=== PATIENT | female | born 1960 | race Caucasian/White ===

== ENCOUNTER 2017-11-24 06:24 | Emergency (ER) | END 2017-11-24 11:11 | disposition short-term general hospital (02) ==

== ENCOUNTER 2017-12-07 12:27 | Inpatient (IN) | END 2017-12-13 20:35 | disposition home or self-care (01) | DRG 440 ==

== ENCOUNTER 2018-01-17 18:00 | Inpatient (IN) | END 2018-01-21 16:00 | disposition home or self-care (01) | DRG 828 ==

== ENCOUNTER 2018-09-24 08:12 | Emergency (ER) | payer OTHER ==
[~2018-09-24] VITALS: Ht 149.9 cm; Wt 80.0 kg
[~2018-09-24 08:12] MED LIST: ASPI-903 PO; CALC500T11 PO; CITA20TA8 PO; DOCU-216 PO; HYDR2TAB36 PO; LEVO150T7 PO; LOSA25TA12 PO; MAGN400T28 PO; SIMV20TA PO
[2018-09-24 08:14] VITALS: Ht 149.9 cm; Wt 80.0 kg
[2018-09-24] MEDS ORDERED: KETOROLAC 30 MG INJ IV STA (08:32)
[2018-09-24] MEDS ORDERED: IBUP-1542 PO (09:44)
--- NOTE | 2018-09-24 09:45 | ERD ---
ER Documentation Chief Complaint Chief Complaint pressure chest pain radiating to R shoulder,L eye swelling HPI Patient is a 57-year-old female with cancer and hypertension who presents with headache. The patient has left eye swelling as well. She was under stress recently when the symptoms started. She has a history of similar in the past. She had chest pressure as well. She tried cool compresses. She does not receive chemotherapy or radiation at this time. Upon review of old medical records this is the patient's sixth visit to the ER since 2017 but review of the emergency department information exchange system shows visits to 3 separate emergency departments. Her primary doctor is Dr. Mukesh Brown. ROS All systems reviewed and are negative except as per history of present illness. Medications Home Meds Active Scripts Ibuprofen* (Motrin*) 600 Mg Tab, 600 MG PO Q6H PRN for PAIN AND OR ELEVATED TEMP, #30 TAB Prov:CORINNE LOPEZ MD 09/24/18 Docusate Sodium (Dok) 100 Mg Capsule, 100 MG PO BID, #60 CAP Prov:ARIELA GRANT 01/21/18 Hydromorphone Hcl* (Dilaudid*) 2 Mg Tablet, 2 MG PO Q6H PRN for PAIN, #60 TAB Prov:ARIELA GRANT 01/21/18 Reported Medications Citalopram Hydrobromide* (Citalopram Hydrobromide*) 20 Mg Tablet, 20 MG PO DAILY, #30 TAB 11/24/17 Magnesium Oxide* (Magnesium Oxide*) 400 Mg Tablet, 400 MG PO DAILY, TAB 11/24/17 Calcium Carbonate (Oysco-500) 500 Mg Tablet, 500 MG PO DAILY, TAB 11/24/17 Simvastatin* (Zocor*) 20 Mg Tablet, 20 MG PO QHS, #30 TAB 11/24/17 Levothyroxine Sodium* (Levothyroxine Sodium*) 150 Mcg Tablet, 150 MCG PO BEFORE BREAKFAST, #30 TAB 11/24/17 Aspirin* (Aspirin* Chew) 81 Mg Tab.chew, 81 MG PO DAILY, TAB.CHEW 11/24/17 Losartan Potassium* (Losartan Potassium*) 25 Mg Tablet, 25 MG PO DAILY, TAB 11/24/17 Allergies Allergies: Coded Allergies: No Known Allergy (Unverified , 01/17/18) PMhx/Soc History of Surgery: Yes (THYROIDECTOMY,RIGHT EAR,LEFT BREAST CYST,CHOLECYSTECTOMY,RT ARTHROSCOPY,BUN) Anesthesia Reaction: No Hx Neurological Disorder: No Hx Respiratory Disorders: No Hx Cardiac Disorders: Yes (HTN) Hx Psychiatric Problems: No Hx Miscellaneous Medical Probl: Yes (THYROID CA) Hx Alcohol Use: No Hx Substance Use: No Hx Tobacco Use: No Smoking Status: Never smoker FmHx Family History: diabetes Physical Exam Vitals Vital Signs Date Temp Pulse Resp B/P (MAP) Pulse Ox O2 O2 Flow FiO2 Time Delivery Rate 09/24/18 98.0 69 14 130/96 100 Room Air 10:25 (107) 09/24/18 89 18 147/97 98 Room Air 08:25 (114) 09/24/18 98.5 82 18 164/7 (59) 98 08:14 Physical Exam Const: Moderate distress Head: Atraumatic Eyes: Normal Conjunctiva ENT: Normal External Ears, Nose and Mouth. Neck: Full range of motion. No meningismus. Resp: Clear to auscultation bilaterally Cardio: Regular rate and rhythm, no murmurs Abd: Soft, non tender, non distended. Normal bowel sounds Skin: No petechiae or rashes Back: No midline or flank tenderness Ext: No cyanosis, or edema Neur: Awake and alert cranial nerves II through XII intact, strength is 5 out of 5 in all 4 extremities Psych: Normal Mood and Affect Result Diagram: 09/24/18 0842 09/24/18 0842 Results 24 hrs Laboratory Tests Test 09/24/18 08:42 White Blood Count 3.6 10^3/ul Red Blood Count 4.98 10^6/ul Hemoglobin 14.4 g/dl Hematocrit 43.4 % Mean Corpuscular Volume 87.1 fl Mean Corpuscular Hemoglobin 28.9 pg Mean Corpuscular Hemoglobin Concent 33.2 g/dl Red Cell Distribution Width 12.6 % Platelet Count 281 10^3/UL Mean Platelet Volume 9.5 fl Immature Granulocytes % 0.300 % Neutrophils % 49.0 % Lymphocytes % 37.0 % Monocytes % 10.3 % Eosinophils % 2.8 % Basophils % 0.6 % Nucleated Red Blood Cells % 0.0 /100WBC Immature Granulocytes # 0.010 10^3/ul Neutrophils # 1.8 10^3/ul Lymphocytes # 1.3 10^3/ul Monocytes # 0.4 10^3/ul Eosinophils # 0.1 10^3/ul Basophils # 0.0 10^3/ul Nucleated Red Blood Cells # 0.0 10^3/ul Sodium Level 141 mmol/L Potassium Level 3.9 mmol/L Chloride Level 112 mmol/L Carbon Dioxide Level 23 mmol/L Anion Gap 6 Blood Urea Nitrogen 20 mg/dl Creatinine 0.53 mg/dl Est Glomerular Filtrat Rate mL/min > 60 mL/min Glucose Level 104 mg/dl Calcium Level 9.3 mg/dl Troponin I < 0.012 ng/ml Current Medications Medications Dose Sig/Trav Start Time Status Last (Trade) Ordered Route PRN Stop Time Admin Dose Reason Admin Ketorolac 30 mg ONCE STAT 09/24/18 DC 09/24/18 Tromethamine IV 08:32 08:46 (Toradol) 09/24/18 08:34 Procedures/MDM EKG read by me: Rate/Rhythm: Regular rate and rhythm at a rate of 76 Intervals: Normal Impression: No evidence of ischemia or arrhythmia CT brain read by radiology. Patient is a 57-year-old female who presents with multiple complaints. The patient has headache and chest pain. Laboratory studies were normal. CT scan of the brain shows no acute abnormality. At this point I doubt acute coronary syndrome, pneumonia, pneumothorax, pulmonary embolism, or aortic dissection. The patient has frequent visits to multiple emergency departments. The patient will be discharged but will need to follow-up closely with the primary doctor within 24-48 hours. She can return for any worsening symptoms. Departure Diagnosis: Primary Impression: Headache Headache type: unspecified Headache chronicity pattern: acute headache Intractability: not intractable Qualified Codes: R51 - Headache Additional Impression: Chest pain Chest pain type: unspecified Qualified Codes: R07.9 - Chest pain, unspecified Condition: Fair Patient Instructions: Self-Care for Headaches, Chest Pain, Uncertain Cause Additional Instructions: Llame al doctor MAANA y janeen alex LESLIE PARA DENTRO DE 1-2 BENNETT.Dgale a la secretaria que nosotros le instruimos hacer esta leslie.Avise o llame si moreira condicin se empeora antes de la leslie. Regresa aqui si peor o no mejor. CORINNE LOPEZ MD Sep 24, 2018 09:45
[2018-09-24 10:25] VITALS: BP 130/96; PULSE 69; RESP 14
== END 2018-09-24 10:25 | disposition home or self-care (01) ==
LOC: E/R 08:12
DX: R51 Headache (principal); I10 Essential (primary) hypertension; Z85.850 Personal history of malignant neoplasm of thyroid; Z79.82 Long term (current) use of aspirin
CPT/HCPCS: 36415; 70450; 71045; 80048; 84484; 85025; 93005; 96374; J1885; Z7502; Z7610

== ENCOUNTER 2018-10-07 14:11 | Emergency (ER) | payer OTHER ==
[~2018-10-07] VITALS: Wt 80.6 kg
[~2018-10-07 14:11] MED LIST changes: +IBUP-1542 PO
[2018-10-07] MEDS ORDERED: HYDROmorphONE 1 MG/ML SYG IV STA (15:21)
[2018-10-07] MEDS ORDERED: LIDOCAINE/MYLANTA 40 ML BTL PO STA (15:21)
[2018-10-07] MEDS ORDERED: BELLADONNA/PHENOBARBITAL TAB PO STA (15:21)
[2018-10-07] MEDS ORDERED: PROCHLORPERAZINE 10 MG INJ IV STA (15:21)
[2018-10-07] MEDS ORDERED: DIPHENHYDRAMINE 50 MG INJ IV STA (15:21)
--- NOTE | 2018-10-07 16:01 | ERD ---
ER Documentation Chief Complaint Chief Complaint AP,CP, VOMITING HPI This is a 57-year-old female who has complaints of a typical migraine headache. The patient has a multi-year long-standing history of migraines. She says she is having a typical exacerbation over the past day with pain located at the frontal region that is pounding with phonophobia and worse with positional change. She does get nausea vomiting with her migraines and she said she is vomiting at this 1. No blood in her vomit. She says after vomiting a few times she developed some epigastric pain this burning. Denies chest pain or shortness of breath or jaw or elbow pain. Patient has a history of hypertension she has had a cholecystectomy ROS All systems reviewed and are negative except as per history of present illness. Medications Home Meds Active Scripts Lorazepam* (Lorazepam*) 1 Mg Tablet, 1 MG PO Q8H PRN for INSOMNIA, #10 TAB Prov:JAYME KAY DO 10/07/18 Ondansetron (Ondansetron Odt) 4 Mg Tab.rapdis, 4 MG PO Q6H PRN for NAUSEA AND/OR VOMITING, #10 TAB Prov:JAYME KAY DO 10/07/18 Hydrocodone/Acetaminophen ([place] 10-325 Tablet) 1 Each Tablet, 1 TAB PO Q6H PRN for PAIN, #16 TAB Prov:JAYME KAY DO 10/07/18 Reported Medications Linaclotide (LINZESS) 290 Mcg Capsule, 290 MCG PO DAILY, #30 CAP 10/07/18 Losartan Potassium* (Losartan Potassium*) 50 Mg Tablet, 50 MG PO DAILY, TAB 10/07/18 Pantoprazole* (Protonix*) 40 Mg Tablet.dr, 40 MG PO DAILY, TAB 10/07/18 Levothyroxine Sodium* (Levoxyl*) 200 Mcg Tablet, 200 MCG PO BEFORE BREAKFAST, #30 TAB 10/07/18 Citalopram Hydrobromide* (Citalopram Hydrobromide*) 20 Mg Tablet, 20 MG PO DAILY, #30 TAB 11/24/17 Simvastatin* (Zocor*) 20 Mg Tablet, 20 MG PO QHS, #30 TAB 11/24/17 Discontinued Reported Medications Magnesium Oxide* (Magnesium Oxide*) 400 Mg Tablet, 400 MG PO DAILY, TAB 11/24/17 Calcium Carbonate (Oysco-500) 500 Mg Tablet, 500 MG PO DAILY, TAB 11/24/17 Levothyroxine Sodium* (Levothyroxine Sodium*) 150 Mcg Tablet, 150 MCG PO BEFORE BREAKFAST, #30 TAB 11/24/17 Aspirin* (Aspirin* Chew) 81 Mg Tab.chew, 81 MG PO DAILY, TAB.CHEW 11/24/17 Losartan Potassium* (Losartan Potassium*) 25 Mg Tablet, 25 MG PO DAILY, TAB 11/24/17 Discontinued Scripts Ibuprofen* (Motrin*) 600 Mg Tab, 600 MG PO Q6H PRN for PAIN AND OR ELEVATED TEMP, #30 TAB Prov:CORINNE LOPEZ MD 09/24/18 Docusate Sodium (Dok) 100 Mg Capsule, 100 MG PO BID, #60 CAP Prov:ARIELA GRANT 01/21/18 Hydromorphone Hcl* (Dilaudid*) 2 Mg Tablet, 2 MG PO Q6H PRN for PAIN, #60 TAB Prov:ARIELA GRANT 01/21/18 Allergies Allergies: Coded Allergies: No Known Allergy (Unverified , 10/07/18) PMhx/Soc History of Surgery: Yes (THYROIDECTOMY,RIGHT EAR,LEFT BREAST CYST,CHOLECYSTECTOMY,RT ARTHROSCOPY,BUN) Anesthesia Reaction: No Hx Neurological Disorder: No Hx Respiratory Disorders: No Hx Cardiac Disorders: Yes (HTN) Hx Psychiatric Problems: No Hx Miscellaneous Medical Probl: Yes (THYROID CA) Hx Alcohol Use: No Hx Substance Use: No Hx Tobacco Use: No Smoking Status: Never smoker FmHx Family History: No coronary disease Physical Exam Vitals Vital Signs Date Temp Pulse Resp B/P (MAP) Pulse Ox O2 O2 Flow FiO2 Time Delivery Rate 10/07/18 98.7 86 18 164/106 99 14:20 (125) Physical Exam Const: Well-developed, well-nourished Head: Atraumatic, normocephalic Eyes: Normal Conjunctiva, PERRLA, EOMI, normal sclera, no nystagmus ENT: Normal External Ears, Nose and Mouth, moist mucus membranes. Neck: Full range of motion. No meningismus, no lymphadenopathy. Resp: Clear to auscultation bilaterally, no wheezing, rhonchi, rales Cardio: Regular rate and rhythm, no murmurs, S1 S2 present Abd: Soft, mild to moderate epigastric tenderness,, non distended. Normal bowel sounds, no guarding or rebound, no pulsitile abdominal masses or bruits Skin: No petechiae or rashes, no ecchymosis , no maculopapular rash Back: No midline or flank tenderness Ext: No cyanosis, or edema, FROM x 4, normal inspection, neurovascularly intact x 4 Neur: Awake and alert, STR 5/5 x 4, sensation intact x 4, no focal findings, cerebellum intact Psych: Normal Mood and Affect Result Diagram: 10/07/18 1528 10/07/18 1528 Results 24 hrs Laboratory Tests Test 10/07/18 15:28 White Blood Count 4.7 10^3/ul Red Blood Count 5.16 10^6/ul Hemoglobin 14.7 g/dl Hematocrit 44.9 % Mean Corpuscular Volume 87.0 fl Mean Corpuscular Hemoglobin 28.5 pg Mean Corpuscular Hemoglobin Concent 32.7 g/dl Red Cell Distribution Width 12.5 % Platelet Count 305 10^3/UL Mean Platelet Volume 9.8 fl Immature Granulocytes % 0.000 % Neutrophils % 54.8 % Lymphocytes % 29.8 % Monocytes % 11.3 % Eosinophils % 3.0 % Basophils % 1.1 % Nucleated Red Blood Cells % 0.0 /100WBC Immature Granulocytes # 0.000 10^3/ul Neutrophils # 2.6 10^3/ul Lymphocytes # 1.4 10^3/ul Monocytes # 0.5 10^3/ul Eosinophils # 0.1 10^3/ul Basophils # 0.1 10^3/ul Nucleated Red Blood Cells # 0.0 10^3/ul Sodium Level 140 mmol/L Potassium Level 4.8 mmol/L Chloride Level 104 mmol/L Carbon Dioxide Level 32 mmol/L Anion Gap 4 Blood Urea Nitrogen 25 mg/dl Creatinine 0.76 mg/dl Est Glomerular Filtrat Rate mL/min > 60 mL/min Glucose Level 96 mg/dl Calcium Level 9.4 mg/dl Troponin I < 0.012 ng/ml Current Medications Medications Dose Sig/Trav Start Time Status Last (Trade) Ordered Route PRN Stop Time Admin Dose Reason Admin 10 mg ONCE STAT 10/07/18 DC 10/07/18 Prochlorperaz IV 15:21 10/07/18 15:42 ine 15:23 (Compazine Inj) 1 mg ONCE STAT 10/07/18 DC 10/07/18 Hydromorphone IV 15:21 10/07/18 15:42 HCl 15:23 (Dilaudid) 25 mg ONCE STAT 10/07/18 DC 10/07/18 Diphenhydrami IV 15:21 10/07/18 15:42 ne HCl 15:23 (Benadryl) 40 ml ONCE STAT 10/07/18 DC 10/07/18 Miscellaneous PO 15:21 10/07/18 15:41 Medication 15:23 (Gi Cocktail (2)) Belladonna/ 2 tab ONCE STAT 10/07/18 DC 10/07/18 Phenobarbital PO 15:21 10/07/18 15:41 () 15:23 Procedures/MDM Patient: KAYLYNN WEBSTER : 1960 Age: 57 Sex: F MR #: [id number] DOS: 10/07/18 1521 Ordering MD: JAYME KAY DO Location: E/R Room/Bed: PROCEDURE: CT Brain without contrast. CLINICAL INDICATION: Headache, altered mental status TECHNIQUE: A CT of the brain was performed on a multi-slice CT scanner utilizing axial imaging from the skull base through the vertex without IV contrast. Multiplanar reformatted images were made. Images were reviewed on a PACS workstation. The CTDIvol is 39.6 mGy and the DLP is 634.2 mGycm. One or more of the following dose reduction techniques were used: Automated exposure control. Adjustment of the mA and/or kV according to patient's size. Use of iterative reconstruction technique. DICOM images are available. COMPARISON: 09/24/2018 FINDINGS: The sulcal gyral pattern is unremarkable without evidence of effacement. The chance-white matter differentiation is intact. No masses, edema or shift is identified. There are no intraparenchymal or extraaxial fluid collections. The visualized paranasal sinuses and mastoid air cells are well-aerated. The skull base and calvarium are intact. IMPRESSION: No acute intracranial abnormalities are identified. RPTAT:AAJJ Spenser Castro, Physician Date Time Electronically viewed and signed by Spenser Castro Physician on 10/07/2018 17:16 MC/ CC: JAYME KAY DO [id number] Patient says her headache is 0 out of 10 and feels much better. The patient says she is been under a lot of stress lately her a few months ago. She has not been sleeping well. I will provide her with some Ativan for sleep/stress response and have her follow-up with her neurologist Departure Diagnosis: Primary Impression: Migraine headache Migraine type: unspecified Status migrainosus presence: without status migrainosus Intractability: not intractable Qualified Codes: G43.909 - Migraine, unspecified, not intractable, without status migrainosus Condition: Stable JAYME KAY DO October 07, 2018 16:01
[2018-10-07] MEDS ORDERED: LEVO200T45 PO (16:25)
[2018-10-07] MEDS ORDERED: PANT40TA3 PO (16:26)
[2018-10-07] MEDS ORDERED: LOSA50TA14 PO (16:26)
[2018-10-07] MEDS ORDERED: LINA290C PO (16:27)
[2018-10-07] MEDS ORDERED: LORA1TAB PO (17:58)
[2018-10-07] MEDS ORDERED: HYDR-3980 PO (17:58)
[2018-10-07] MEDS ORDERED: ONDA4TAB14 PO (17:58)
[2018-10-07 18:19] VITALS: BP 127/89; PULSE 74; RESP 20
== END 2018-10-07 18:20 | disposition home or self-care (01) ==
LOC: E/R 14:11
DX: G43.909 Migraine, unspecified, not intractable, without status migrainosus (principal); I10 Essential (primary) hypertension; Z85.850 Personal history of malignant neoplasm of thyroid
CPT/HCPCS: 36415; 70450; 80048; 84484; 85025; 93005; 96374; 96375; J0780; J1170; J1200; Z7502; Z7610

== ENCOUNTER 2018-10-09 10:01 | Emergency (ER) | payer OTHER ==
[~2018-10-09] VITALS: Ht 152.4 cm; Wt 80.0 kg
[~2018-10-09 10:01] MED LIST changes: -ASPI-903 PO; -CALC500T11 PO; -DOCU-216 PO; +HYDR-3980 PO; -HYDR2TAB36 PO; -IBUP-1542 PO; -LEVO150T7 PO; +LEVO200T45 PO; +LINA290C PO; +LORA1TAB PO; -LOSA25TA12 PO; +LOSA50TA14 PO; -MAGN400T28 PO; +ONDA4TAB14 PO; +PANT40TA3 PO
[2018-10-09 10:06] VITALS: Ht 152.4 cm; Wt 80.0 kg
[2018-10-09] MEDS ORDERED: DIPHENHYDRAMINE 25 MG CAP PO ONE (11:00)
[2018-10-09] MEDS ORDERED: METHYLPREDNISOLONE 125 MG INJ IM ONE (11:00)
[2018-10-09] MEDS ORDERED: FAMOTIDINE 20 MG TAB PO ONE (11:00)
[2018-10-09] MEDS ORDERED: PRED20TA PO (11:25)
[2018-10-09] MEDS ORDERED: BEN25 PO (11:25)
[2018-10-09 11:48] VITALS: BP 149/78; PULSE 79; RESP 18
--- NOTE | 2018-10-10 19:10 | ERD ---
ER Documentation Chief Complaint Chief Complaint RASHES AND ITTCHINESS ; RIGHT ARM TINGLING SENSATION HPI 57-year-old female patient with past medical history of thyroid cancer, hypertension presents ED complaining of a rash that started a few days ago, complains it is itchy. Reports that she is taking aspirin, levothyroxine, citalopram, simvastatin. States that her sister also has similar symptoms. States that she took Benadryl last night. Denies any chest, shortness of breath, nausea, vomiting, diarrhea, neck stiffness. ROS All systems reviewed and are negative except as per history of present illness. Medications Home Meds Active Scripts Prednisone* (Prednisone*) 20 Mg Tab, 40 MG PO DAILY for 4 Days, TAB Prov:EMELYN ROSEN PA-C 10/09/18 Diphenhydramine Hcl* (Benadryl*) 25 Mg Cap, 25 MG PO Q6, #30 CAP Prov:EMELYN ROSEN PA-C 10/09/18 Lorazepam* (Lorazepam*) 1 Mg Tablet, 1 MG PO Q8H PRN for INSOMNIA, #10 TAB Prov:JAYME KAY DO 10/07/18 Ondansetron (Ondansetron Odt) 4 Mg Tab.rapdis, 4 MG PO Q6H PRN for NAUSEA AND/OR VOMITING, #10 TAB Prov:JAYME KAY DO 10/07/18 Hydrocodone/Acetaminophen ([place] 10-325 Tablet) 1 Each Tablet, 1 TAB PO Q6H PRN for PAIN, #16 TAB Prov:JAYME KAY DO 10/07/18 Reported Medications Linaclotide (LINZESS) 290 Mcg Capsule, 290 MCG PO DAILY, #30 CAP 10/07/18 Losartan Potassium* (Losartan Potassium*) 50 Mg Tablet, 50 MG PO DAILY, TAB 10/07/18 Pantoprazole* (Protonix*) 40 Mg Tablet.dr, 40 MG PO DAILY, TAB 10/07/18 Levothyroxine Sodium* (Levoxyl*) 200 Mcg Tablet, 200 MCG PO BEFORE BREAKFAST, #30 TAB 10/07/18 Citalopram Hydrobromide* (Citalopram Hydrobromide*) 20 Mg Tablet, 20 MG PO DAILY, #30 TAB 11/24/17 Simvastatin* (Zocor*) 20 Mg Tablet, 20 MG PO QHS, #30 TAB 11/24/17 Allergies Allergies: Coded Allergies: No Known Allergy (Unverified , 10/07/18) PMhx/Soc History of Surgery: Yes (THYROIDECTOMY,RIGHT EAR,LEFT BREAST CYS T,CHOLECYSTECTOMY,RT ARTHROSCOPY,BUN) Anesthesia Reaction: No Hx Neurological Disorder: No Hx Respiratory Disorders: No Hx Cardiac Disorders: Yes (HTN) Hx Psychiatric Problems: No Hx Miscellaneous Medical Probl: Yes (THYROID CA) Hx Alcohol Use: No Hx Substance Use: No Hx Tobacco Use: No Smoking Status: Never smoker FmHx Family History: No diabetes, No coronary disease Physical Exam Vitals Vital Signs Date Temp Pulse Resp B/P (MAP) Pulse Ox O2 O2 Flow FiO2 Time Delivery Rate 10/09/18 98.5 79 18 149/78 99 Room Air 11:48 (101) 10/09/18 99.0 88 18 160/92 97 10:06 (114) Physical Exam Const: [id number], well-nourished. In no acute distress. Head: Atraumatic, normocephalic Eyes: Normal Conjunctiva without injection. No purulent discharge. PERRL. EOMI ENT: Normal external ear. Ear canal without erythema. Tympanic membrane pearly chance without effusion or bulging. Nasal canal clear with normal turbinates. Moist oropharynx without tonsillar exudates. Non-erythematous pharynx. Uvula midline. No drooling. No trismus. Neck: Full range of motion. No meningismus. No cervical lymphadenopathy. Resp: Clear to auscultation bilaterally. No wheezing, rhonchi, rales, or crackles. No accessory muscle use. No retractions. Cardio: Regular rate and rhythm. No murmurs, rubs or gallops. Abd: Soft, non tender, non distended. Normal bowel sounds. No palpable masses. No rebound tenderness. No guarding. Skin: No petechiae or purpura. Wheal-like lesions noted on her abdomen. No fluctuance or induration. Back: No midline tenderness. No CVA tenderness. Ext: No cyanosis, or edema. Neur: Awake and alert. Psych: Normal Mood and Affect Results 24 hrs Current Medications Medications Dose Sig/Trav Start Time Status Last (Trade) Ordered Route PRN Stop Time Admin Dose Reason Admin 125 mg ONCE ONCE 10/09/18 DC 10/09/18 Methylprednis IM 11:00 10/09/18 10:52 olone Sodium 11:01 Succinate (Solu-Medrol) 25 mg ONCE ONCE 10/09/18 DC 10/09/18 Diphenhydrami PO 11:00 10/09/18 10:52 ne HCl 11:01 (Benadryl) Famotidine 20 mg ONCE ONCE 10/09/18 DC 10/09/18 (Pepcid) PO 11:00 10/09/18 10:52 11:01 Procedures/MDM 57-year-old female patient with past medical history of hypertension, thyroid cancer presents to the ED complaining of hives-like lesions. Patient was spenser rimma here in the ED with Prednisone, Benadryl, Famotidine. Low suspicion for anaphylaxis, scabies, SJS/TEN, TSS, Lyme's Disease, syphilis, RMSF, shingles, disseminated gonorrhea chlamydia, DIC, TTP, ITP, erythema multiforme, sepsis, cellulitis, necrotizing fasciitis, gangrene, meningococcemia, allergic contact dermatitis, urticaria, eczema, tinea infection, or other emergent conditions. Diagnosis: Rash Discharge medications: Prednisone, Benadryl Follow up with primary care physician in 1-2 days for a referral to see a street commissioner if symptoms do not improve. Instructed patient to return to the ED sooner for any worsening symptoms. Patient's questions were answered. Patient is hemodynamically stable. Patient understood and agreed with discharge plan. Patient discharged stable. Disclaimer: Inadvertent spelling and grammatical errors are likely due to EHR/dictation software use and do not reflect on the overall quality of patient care. Also, please note that the electronic time recorded on this note does not necessarily reflect the actual time of the patient encounter. Departure Diagnosis: Primary Impression: Rash and other nonspecific skin eruption Condition: Stable Patient Instructions: Allergic Reaction, Other (General), Hives Referrals: DALILA TALLEY MD (PCP) [facility] Usted se garcia hecho un examen mdico de control que le indica que no est en alex condicin que requiera tratamiento urgente en el Departamento de Emergencia. Un estudio ms profundo y el tratamiento de moreira condicin pueden esperar sin ningn riesgo hasta que usted sea atendida/o en el consultorio de moreira mdico o alex clnica. Es responsabilidad suya arreglar alex leslie para el seguimiento del rere. MANEJO DE CONDICIONES NO URGENTES EN EL FUTURO 1) Si usted tiene un mdico de atencin primaria: Usted debera llamar a moreira mdico de atencin primaria antes de venir al departamento de emergencia. Despus de las horas de consultorio, moreira doctor o moreira asociado/a est disponible por telfono. El mdico o enfermero de margarita en el servicio telefnico puede asesorarle por matt medio para atender el problema, o rere contrario se puede programar alex leslie. 2) Si usted no tiene un mdico de atencin primaria: Llame al mdico o clnica de referencia que aparece abajo jose las horas de consultorio para hacer alex leslie para que le vean. CLINICAS: [facility] [phone] [address] [facility] [phone] [address] [facility]. [facility] [phone] [facility] [phone] [facility] [place] [id number] [phone] [facility]. [phone] [address] [facility] . [facility] () Usted se garcia hecho un examen mdico de control que le indica que no est en alex condicin que requiera tratamiento urgente en el Departamento de Emergencia. Un estudio ms profundo y el tratamiento de moreira condicin pueden esperar sin ningn riesgo hasta que usted sea atendida/o en el consultorio de moreira mdico o alex clnica. Es responsabilidad suya arreglar alex leslie para el seguimiento del rere. MANEJO DE CONDICIONES NO URGENTES EN EL FUTURO 1) Si usted tiene un mdico de atencin primaria: Usted debera llamar a moreira mdico de atencin primaria antes de venir al departamento de emergencia. Despus de las horas de consultorio, moreira doctor o moreira asociado/a est disponible por telfono. El mdico o enfermero de margarita en el servicio telefnico puede asesorarle por matt medio para atender el problema, o rere contrario se puede programar alex leslie. 2) Si usted no tiene un mdico de atencin primaria: Llame al mdico o condado institucions de referencia que aparece abajo jose las horas de consultorio para hacer alex leslie para que le vean. SI USTED NO PUEDE PAGAR PARA NIKOLE UN MEDICO puede ir a: [facility] [address] [place] [address] [facility] [address] [place] [address] [facility] [address] [place] [address] [facility] [address] [place], [place] [id number] Additional Instructions: Llame al doctor MAANA y janeen alex LESLIE PARA DENTRO DE 2-3 BENNETT para las pruebas de alergia.Dgale a la secretaria que nosotros le instruimos hacer esta leslie.Avise o llame si moreira condicin se empeora antes de la leslie. Regresa aqui si peor o no mejor. EMELYN ROSNE PA-C October 10, 2018 19:10
== END 2018-10-09 11:40 | disposition home or self-care (01) ==
LOC: FTE 10:01
DX: R21 Rash and other nonspecific skin eruption (principal); I10 Essential (primary) hypertension; Z85.850 Personal history of malignant neoplasm of thyroid
CPT/HCPCS: J2930; Z7610; 96372